=== PATIENT | female | born 1960 | race Caucasian/White ===

== ENCOUNTER 2022-11-22 20:02 | Inpatient (IN) | payer OTHER ==
[~2022-11-22] VITALS: Ht 157.5 cm; Wt 53.5 kg
[2022-11-22 20:37] LABS: BASOPHILS # (AUTO) 0.1 K/UL (0.0-0.2); BASOPHILS % (AUTO) 1.2 % (0.0-2.0); EOSINOPHILS # (AUTO) 0.1 K/uL (0.0-0.7); HEMATOCRIT 40.7 % (31.2-41.9); HEMOGLOBIN 13.5 g/dL (10.9-14.3); LYMPHOCYTES # (AUTO) 2.7 K/uL (0.8-4.8); LYMPHOCYTES % (AUTO) 48.8 % (20.5-51.5); MEAN CORPUSCULAR HEMOGLOBIN 30.3 uug (24.7-32.8); MEAN CORPUSCULAR HGB CONC 33 g/dL (32.3-35.6); MEAN CORPUSCULAR VOLUME 91.2 fL (75.5-95.3); MONOCYTES # (AUTO) 0.5 K/uL (0.1-1.30); MONOCYTES % (AUTO) 9.2 % (0.0-11.0); NEUTROPHILS # (AUTO) 2.2 K/uL (1.8-8.9); NEUTROPHILS % (AUTO) 39.8 % (38.5-71.5); PLATELET COUNT (AUTO) 221 K/uL (179-408); RED BLOOD CELL COUNT(AUTO) 4.47 MIL/uL (3.63-4.92); RED CELL DISTRIBUTION WIDTH 13.5 % (12.3-17.7); WHITE BLOOD COUNT (AUTO) 5.6 K/uL (3.8-11.8)
[2022-11-22 20:45] LABS: CALCIUM 8.9 mg/dL (8.5-10.1); CARBON DIOXIDE 24 mmol/L (21-32); CHLORIDE 94 mmol/L (98-107); CREATININE 0.7 mg/dL (0.6-1.3); GLUCOSE 110 mg/dL (74-106); POTASSIUM 3.3 mmol/L (3.5-5.1); SODIUM SERUM 131 mmol/L (136-145); UREA NITROGEN, BLOOD 12 mg/dL (7-18)
[2022-11-22 20:58] LABS: ALANINE AMINOTRANSFERASE 32 U/L (14-59); ALBUMIN 4.1 g/dL (3.4-5.0); ALKALINE PHOSPHATASE 63 U/L (50-136); ASPARTATE AMINOTRANSFERASE 22 U/L (15-37); BILIRUBIN,DIRECT 0.1 mg/dL (0.0-0.2); BILIRUBIN,TOTAL 0.4 mg/dL (0.2-1.0); NT-PRO BNP 60 pg/mL (0-125); TOTAL PROTEIN, SERUM 7.7 g/dL (6.4-8.2)
[2022-11-22] MEDS ORDERED: POTASSIUM CHLORIDE 20 MEQ TAB.PRT.SR PO ONE (21:15)
[2022-11-22 21:51] LABS: DIFFERENTIAL COMMENT 1
[2022-11-23] MEDS ORDERED: UBID100C13 PO (01:43)
[2022-11-23] MEDS ORDERED: METH4TAB3 PO (01:43)
[2022-11-23] MEDS ORDERED: ALEN70TA80 PO (01:43)
[2022-11-23] MEDS ORDERED: DESV25TA PO (01:43)
[2022-11-23] MEDS ORDERED: MELA5TAB20 PO (01:43)
[2022-11-23] MEDS ORDERED: BIOT10TA PO (01:43)
[2022-11-23] MEDS ORDERED: MIDO5TAB5 PO (01:43)
[2022-11-23] MEDS ORDERED: PRAV20TA4 PO (01:43)
[2022-11-23] MEDS ORDERED: TURM1CAP2 PO (01:43)
[2022-11-23] MEDS ORDERED: FERR28CA PO (01:43)
[2022-11-23] MEDS ORDERED: MV-M1TAB18 PO (01:43)
[2022-11-23] MEDS ORDERED: ASCO500C18 PO (01:43)
[2022-11-23] MEDS ORDERED: SERT25TA PO (01:43)
[2022-11-23] MEDS: MELATONIN 3 MG TABLET PO SCH ×2 (02:00→20:28)
[2022-11-23] MEDS ORDERED: SERTRALINE HCL 50 MG TABLET PO ONE (02:00)
[2022-11-23] MEDS ORDERED: HOME MED MISCELLANEOUS XX SCH ×2 (02:00)
[2022-11-23] MEDS ORDERED: ENOXAPARIN SODIUM 30 MG/0.3 ML DISP.SYRIN SQ SCH (02:00)
[2022-11-23] MEDS ORDERED: MIDODRINE HCL 5 MG TABLET PO SCH (02:00)
[2022-11-23] MEDS ORDERED: ACETAMINOPHEN 325 MG TABLET PO PRN (02:00)
[2022-11-23 03:10] VITALS: BP 158/85; TEMP 98.9; O2SAT 98
[2022-11-23 08:00] VITALS: BP 133/88; TEMP 97.2; O2SAT 98
[2022-11-23] MEDS ORDERED: FERROUS BIS GLYCINATE CHELATE PO SCH (09:00)
[2022-11-23] MEDS ORDERED: DESVENLAFAXINE SUCCINATE 25 MG PO SCH (09:00)
[2022-11-23] MEDS ORDERED: Medication Not On Formulary EA (Turmeric/Turmeric Root Extract (Turmeric 500 mg Capsule) PO SCH (09:00)
[2022-11-23] MEDS ORDERED: Medication Not On Formulary EA (Mv-Mn/Iron/FA/Herbal Cmplx#190 (Vitamin D3 Complete Capl PO SCH (09:00)
[2022-11-23] MEDS ORDERED: BIOTIN PO SCH (09:00)
[2022-11-23] MEDS: ASPIRIN 81 MG TAB.CHEW PO SCH (09:27)
[2022-11-23] MEDS: ASCORBIC ACID 500 MG TABLET PO SCH (09:28)
[2022-11-23 11:07] LABS: BASOPHILS % (AUTO) 0.8 % (0.0-2.0); EOSINOPHILS % (AUTO) 0.1 % (0.0-7.0); HEMATOCRIT 42.3 % (31.2-41.9); HEMOGLOBIN 14.3 g/dL (10.9-14.3); LYMPHOCYTES # (AUTO) 1.5 K/uL (0.8-4.8); LYMPHOCYTES % (AUTO) 39.4 % (20.5-51.5); MEAN CORPUSCULAR HEMOGLOBIN 30.6 uug (24.7-32.8); MEAN CORPUSCULAR HGB CONC 34 g/dL (32.3-35.6); MEAN CORPUSCULAR VOLUME 90.4 fL (75.5-95.3); MONOCYTES # (AUTO) 0.4 K/uL (0.1-1.30); MONOCYTES % (AUTO) 10.6 % (0.0-11.0); NEUTROPHILS # (AUTO) 1.9 K/uL (1.8-8.9); NEUTROPHILS % (AUTO) 49.1 % (38.5-71.5); PLATELET COUNT (AUTO) 236 K/uL (179-408); RED BLOOD CELL COUNT(AUTO) 4.68 MIL/uL (3.63-4.92); RED CELL DISTRIBUTION WIDTH 13.3 % (12.3-17.7); WHITE BLOOD COUNT (AUTO) 3.8 K/uL (3.8-11.8)
[2022-11-23 11:16] LABS: DIFFERENTIAL COMMENT 1
[2022-11-23 11:34] LABS: ALBUMIN 4.3 g/dL (3.4-5.0); BILIRUBIN,TOTAL 0.5 mg/dL (0.2-1.0); CALCIUM 9.2 mg/dL (8.5-10.1); CREATININE 0.7 mg/dL (0.6-1.3); TOTAL PROTEIN, SERUM 7.8 g/dL (6.4-8.2)
[2022-11-23 12:00] VITALS: BP 138/64; TEMP 98; O2SAT 96
[2022-11-23] MEDS: SERTRALINE HCL 50 MG TABLET PO SCH (12:03)
[2022-11-23] MEDS: DESVENLAFAXINE SUCCINATE 25 MG PO SCH (12:36)
[2022-11-23] MEDS ORDERED: CHOL100062 PO (16:34)
[2022-11-23 17:00] VITALS: BP 139/83; TEMP 98.7; O2SAT 97
[2022-11-23 20:00] VITALS: BP 112/75; TEMP 98.5; O2SAT 96
[2022-11-23] MEDS ORDERED: ENOXAPARIN SODIUM 40 MG/0.4 ML DISP.SYRIN SQ SCH (21:00)
[2022-11-23] MEDS ORDERED: ATORVASTATIN 10 MG TABLET PO SCH (21:00)
[2022-11-24] VITALS: BP 129/83; TEMP 98.2; O2SAT 98
[2022-11-24 04:00] VITALS: BP 122/75; TEMP 97.5; O2SAT 100
[2022-11-24] MEDS ORDERED: ALENDRONATE SODIUM 70 MG TABLET PO SCH (06:30)
[2022-11-24 06:55] LABS: BASOPHILS % (AUTO) 1.1 % (0.0-2.0); EOSINOPHILS % (AUTO) 1.1 % (0.0-7.0); HEMATOCRIT 42.9 % (31.2-41.9); HEMOGLOBIN 14.4 g/dL (10.9-14.3); LYMPHOCYTES # (AUTO) 1.9 K/uL (0.8-4.8); LYMPHOCYTES % (AUTO) 50.3 % (20.5-51.5); MEAN CORPUSCULAR HEMOGLOBIN 30.6 uug (24.7-32.8); MEAN CORPUSCULAR HGB CONC 34 g/dL (32.3-35.6); MEAN CORPUSCULAR VOLUME 91.3 fL (75.5-95.3); MONOCYTES # (AUTO) 0.4 K/uL (0.1-1.30); MONOCYTES % (AUTO) 10.3 % (0.0-11.0); NEUTROPHILS # (AUTO) 1.4 K/uL (1.8-8.9); NEUTROPHILS % (AUTO) 37.2 % (38.5-71.5); PLATELET COUNT (AUTO) 229 K/uL (179-408); RED CELL DISTRIBUTION WIDTH 13.4 % (12.3-17.7); WHITE BLOOD COUNT (AUTO) 3.7 K/uL (3.8-11.8)
[2022-11-24 07:09] LABS: DIFFERENTIAL COMMENT 1
[2022-11-24 08:00] VITALS: BP 110/78; TEMP 98; O2SAT 98
[2022-11-24 08:21] LABS: CALCIUM 8.8 mg/dL (8.5-10.1); CREATININE 0.7 mg/dL (0.6-1.3); MAGNESIUM 2.4 mg/dL (1.8-2.4); PHOSPHOROUS 3.8 mg/dL (2.5-4.9)
[2022-11-24] MEDS: ASPIRIN 81 MG TAB.CHEW PO SCH ×2 (09:00→15:40)
[2022-11-24] MEDS: CHOLECALCIFEROL 1,000 UNIT TABLET PO SCH ×2 (09:59→15:42)
[2022-11-24] MEDS: DESVENLAFAXINE SUCCINATE 25 MG PO SCH ×2 (09:59→15:40)
[2022-11-24] MEDS: SERTRALINE HCL 50 MG TABLET PO SCH ×2 (09:59→15:43)
[2022-11-24] MEDS: ASCORBIC ACID 500 MG TABLET PO SCH ×2 (09:59→15:42)
[2022-11-24 11:35] VITALS: BP 135/80; TEMP 98.1; O2SAT 98
[2022-11-24 12:48] LABS: THYROID STIMULATING HORMONE 1.415 mIU/mL (0.358-3.740)
[2022-11-24 13:20] LABS: MAGNESIUM 2.4 mg/dL (1.8-2.4); PHOSPHOROUS 4.1 mg/dL (2.5-4.9); URIC ACID 1.9 mg/dL (2.6-6.0)
[2022-11-24] MEDS ORDERED: ATOR10TA PO (13:55)
[2022-11-24] MEDS ORDERED: ASPI81TA31 PO (13:55)
[2022-11-24 15:58] VITALS: BP 109/66; TEMP 97.6; O2SAT 98
== END 2022-11-24 19:55 | disposition home or self-care (01) | DRG 303 ==
LOC: ER 20:14 → TELE3 11-23 02:00
PROVIDERS: ADMIT Nurse Practitioner Acute Care; ATTEND Nurse Practitioner Acute Care
DX: I25.111 Atherosclerotic heart disease of native coronary artery with angina pectoris with documented spasm (principal); E87.1 Hypo-osmolality and hyponatremia; E87.6 Hypokalemia; G90.A Postural orthostatic tachycardia syndrome [POTS]; R03.0 Elevated blood-pressure reading, without diagnosis of hypertension; Z86.79 Personal history of other diseases of the circulatory system; Z98.890 Other specified postprocedural states; Z79.899 Other long term (current) drug therapy; G89.29 Other chronic pain; M54.30 Sciatica, unspecified side; M81.0 Age-related osteoporosis without current pathological fracture
CPT/HCPCS: 36415; 71045; 82533; 83735; 84100; 84443; 84484; 84550; 85025; 85730; 93005; 93307; G0378; J1650